=== PATIENT | female | born 1970 | race Caucasian/White ===

== ENCOUNTER 2017-11-12 11:34 | Emergency (ER) | payer OTHER, SELFPAY ==
[2017-11-12 11:45] VITALS: BP 109/92; PULSE 75; RESP 18; TEMP 36.6; O2SAT 100
--- NOTE | 2017-11-12 13:11 | ED_ITS ---
HPI - Eye Problem <JANETH Baker - Last Filed: 11/12/17 22:24> General Chief complaint: Eye Problems Stated complaint: WALK IN SENT OVER TO CHECK PRESSURE OF EYE Time Seen by Provider: 11/12/17 12:05 History of Present Illness HPI Narrative: 47-year-old female here for complaint of redness to her right eye for the last week. She states that she noticed that she had broken blood vessel to right eye she reports over the last several days that it has worsened where she has had a few more rupture blood vessels. She also reports now that she is having swelling into her upper and lower eyelids with some tenderness. She denies any purulent drainage. She does report that eye has been watering. She denies any trauma to the eye. She denies any visual changes. She has a history of hypertension she states that her blood pressure has been controlled well she denies any other concerns or complaints MD chief complaint: eye redness Related Data Home Medications Medication Instructions Recorded Confirmed acetaminophen 325 mg capsule 325 mg PO Q6H PRN 11/12/17 11/12/17 albuterol sulfate HFA 90 2 puff INHALATION Q6H PRN 11/12/17 11/12/17 mcg/actuation aerosol inhaler mometasone-formoterol HFA 200 2 puff INHALATION BID 11/12/17 11/12/17 mcg-5 mcg/actuation aerosol inhaler nifedipine ER 30 mg 30 mg PO BEDTIME 11/12/17 11/12/17 tablet,extended release olmesartan 40 mg tablet 40 mg PO BEDTIME 11/12/17 11/12/17 Allergies Allergy/AdvReac Type Severity Reaction Status Date / Time Sulfa (Sulfonamide Allergy hives Verified 11/12/17 11:00 Antibiotics) Review of Systems <JANETH Baker - Last Filed: 11/12/17 22:24> Constitutional Denies frequent falls Eyes Reports other Comments: Redness to right eye ENT Ears, Nose, Mouth, and Throat: Denies change in voice, Denies dizziness, Denies neck pain and Denies sore throat Cardiovascular Denies chest pain, Denies irregular heart rhythm, Denies lightheadedness, Denies palpitations, Denies dyspnea, Denies dyspnea on exertion and Denies orthopnea Respiratory Denies cough, Denies dyspnea, Denies dyspnea on exertion and Denies wheezing Gastrointestinal Gastrointestinal: Denies abdominal pain, Denies change in bowel habits, Denies diarrhea, Denies nausea and Denies vomiting Genitourinary Denies hematuria, Denies flank pain, Denies urinary incontinence and Denies urinary urgency Musculoskeletal Denies neck pain and Denies numbness Integumentary/Breasts Denies pruritus, Denies erythema, Denies rash and Denies wounds Neurologic Denies behavioral changes, Denies confusion, Denies dizziness, Denies frequent falls and Denies numbness Psychiatric Denies behavioral changes and Denies confusion Endocrine Denies palpitations Hematologic/Lymphatic Denies easy bruising Allergic/Immunologic Denies wheezing Exam <QUINTIN BakerP - Last Filed: 11/12/17 22:24> Initial Vital Signs Initial Vital Signs: Vital Signs Temperature 97.8 F 11/12/17 11:45 Pulse Rate 75 11/12/17 11:45 Respiratory Rate 18 11/12/17 11:45 Blood Pressure 109/92 H 11/12/17 11:45 Pulse Oximetry 100 11/12/17 11:45 Const General: cooperative and well developed Nutritional Appearance: well nourished Orientation: alert, awake, oriented x3 and not confused [facility] Head: normocephalic and atraumatic Mouth: oral mucosae normal and moist mucous membranes Eyes Eyelids: eyelid abnormality right upper eyelid swelling and tenderness and right lower eyelid swelling and tenderness Conjunctivae: conjunctival abnormality right conjunctival injection Sclera: scleral abnormality right hemorrhage Cornea: fluorescein used (No fluorescein uptake appreciated. ) Pupils: PERRL EOM: EOM intact bilaterally Other: Pressure to left eye 32 mmhg pressure to right eye 33mmhg Resp Effort & Inspection: normal respiratory effort, able to speak in complete sentences, no respiratory distress and no use of accessory muscles Auscultation: clear to auscultation bilaterally, no rales, no rhonchi and no wheezes Cardio Rate: regular rate Rhythm: regular rhythm Heart Sounds: no click, no gallops, no murmurs and no rubs Skin General: no rashes or lesions noted, No jaundice and No petechiae Neuro General: alert, oriented x3, gait normal and no focal motor deficits Speech: speech normal <Tk Berman DO - Last Filed: 11/18/17 18:20> Initial Vital Signs Initial Vital Signs: Vital Signs Temperature 97.8 F 11/12/17 11:45 Pulse Rate 75 11/12/17 11:45 Respiratory Rate 18 11/12/17 11:45 Blood Pressure 109/92 H 11/12/17 11:45 Pulse Oximetry 100 11/12/17 11:45 Course <JANETH Baker - Last Filed: 11/12/17 22:24> Vital Signs - 8 hr 11/12/17 11:45 Temperature 97.8 F Pulse Rate 75 Respiratory Rate 18 Blood Pressure 109/92 H Pulse Oximetry 100 <Tk Berman DO - Last Filed: 11/18/17 18:20> Vital Signs - 8 hr 11/12/17 11:45 Temperature 97.8 F Pulse Rate 75 Respiratory Rate 18 Blood Pressure 109/92 H Pulse Oximetry 100 MDM - Eye Problem <JANETH Baker - Last Filed: 11/12/17 22:24> MDM Narrative Medical decision making narrative: Right eye sclera are injected slight swelling to the upper eyelid and lower eyelid with tenderness. Negative for seen exam pressure to the left eye was 32 mm of mercury pressure to the right eye was 33 mm of mercury however patient did not tolerate testing well and was difficult for her to hold still so unsure if able to obtain accurate pressure reading. visual acuity was with normal. discussed case with Ophthalmology who agreed to see patient patient was sent to Ophthalmology for exam at this time. Discharge Plan Departure Patient Disposition: Released, Other Clinical Impression: Subconjunctival hemorrhage Discharge Date/Time: 11/12/17 13:48 Interventions: ED Discharge Assessment Last Done: 11/12/17 13:48 Instructions: DI for Subconjunctival Hemorrhage Activity Restrictions/Additional Instructions: Pressure readings in her eye today were elevated however unsure if pressures are accurate as you are comfortable with the exam. Discussed case with Ophthalmology who will see you now. Go to ophthalmology for further evaluation. Return emergency room for any worsening symptoms follow up with primary care provider. Prescriptions: No Action nifedipine 30 mg tablet extended release 30 mg PO BEDTIME RF: 0 albuterol sulfate 90 mcg/actuation HFA aerosol inhaler 2 puff INHALATION Q6H PRN (Reason: Shortness Of Breath) RF: 0 acetaminophen [Tylenol] 325 mg capsule 325 mg PO Q6H PRN (Reason: Pain, Mild) RF: 0 mometasone-formoterol [Dulera] 200-5 mcg/actuation HFA aerosol inhaler 2 puff INHALATION BID RF: 0 olmesartan [Benicar] 40 mg tablet 40 mg PO BEDTIME RF: 0 Referrals: Kassie Rodriguez PA-C [Primary Care Provider] - <Tk Berman DO - Last Filed: 11/18/17 18:20> Cosign ED Attending Tunde Attestation: I was available for consultation during this patient's emergency department encounter
== END 2017-11-12 13:48 | disposition home or self-care (01) ==
PROVIDERS: Emergency Provider Nurse Practitioner Family; PCP Physician Assistant Medical
DX: H11.30 Conjunctival hemorrhage, unspecified eye (principal)
CPT/HCPCS: 99282; 99283

== ENCOUNTER 2019-08-23 11:28 | Emergency (ER) | payer OTHER, SELFPAY ==
[2019-08-23 11:35] VITALS: BP 165/85; PULSE 79; RESP 14; TEMP 36.5; O2SAT 99
--- NOTE | 2019-08-23 11:47 | DI.CT.S_ITS ---
PROCEDURE: CT HEAD/BRAIN WO CON INDICATIONS: fell w/ head injury on friday, now blurry left eye and STARR TECHNIQUE: Noncontrast 4.5 mm thick angled axial sections acquired from the foramen magnum to the vertex, with coronal and sagittal reformats. For radiation dose reduction, the following was used: automated exposure control, adjustment of mA and/or kV according to patient size. COMPARISON: None. FINDINGS: Image quality: Excellent. CSF spaces: Basal cisterns are patent. No extra-axial fluid collections. The ventricles are symmetric in size and shape. Brain: No intracranial bleeds or masses. There is cerebral volume loss for age, with resultant ventricular and sulcal prominence. There are periventricular and deep white matter chronic small vessel ischemic changes. There is intracranial internal carotid artery atherosclerosis. Skull and face: Calvarium and visualized facial bones appear intact, without suspicious lesions. Sinuses: Visualized sinuses and mastoids are clear. IMPRESSION: No acute intracranial disease process. Dictated by: Tere Hurley MD, PhD on 08/23/2019 at 12:11 Approved by: Tere Hurley MD, PhD on 08/23/2019 at 12:13
[2019-08-23 13:25] VITALS: BP 152/77; PULSE 63; RESP 17; O2SAT 99
--- NOTE | 2019-08-23 13:35 | ED.HEATRA ---
HPI - Head Injury <JANETH Myers - Last Filed: 08/23/19 19:00> General Chief complaint: Head Injury Stated complaint: Fell at work 3 days ago Time Seen by Provider: 08/23/19 13:06 Source: patient Mode of arrival: Ambulatory Limitations: no limitations History of Present Illness HPI Narrative: 49yo female with history of hypertension asthma, presents emergency department complaining of an ongoing headache for the past few days. 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 She believes she hit her head, she was disoriented and may have had an episode of presyncope. The fall was unwitnessed, she was able to get up from the fall by herself. She was seen at [facility] that day, patient reports she had right ankle, wrist, and back pain. Patient reports that received x-rays of her right ankle, right wrist, and back. She denies any head CT. Patient reported yesterday she went back to work and continued to have dull aching diffuse headache with light sensitivity since the fall. 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 Patient also noted that under headache pain was at her worst, her left eye blurry for few brief moments and saw a vertical line in her vision. Patient states this quickly resolved after she closed her eyes. Patient states she has been taking Tylenol in the evening to help with her headache. She states the headache is mild. Her pain increases with working decreases with rest. Patient reports resolving right ankle and back pain. She reports her wrist was feeling better but after work today she reports increased pain with extensive movement, pain is relieved with rest. Patient denies any syncope, chest pain, double vision, vision loss, vomiting, wheezing, fevers, chills, abdominal pain, diarrhea, or any other concerns. Patient states she does not take ibuprofen as this causes her to wheeze due to asthma. She reports she has had tolerated on the past without wheezing. Related Data Home Medications Medication Instructions Recorded Confirmed acetaminophen 325 mg capsule 325 mg PO Q6H PRN 11/12/17 03/30/19 albuterol sulfate 90 mcg/actuation 2 puff INHALATION Q6H PRN 11/12/17 03/30/19 aerosol inhaler mometasone-formoterol HFA 200 2 puff INHALATION BID 11/12/17 03/30/19 mcg-5 mcg/actuation aerosol inhaler nifedipine 30 mg tablet,extended 30 mg PO BEDTIME 11/12/17 03/30/19 release olmesartan 40 mg tablet 40 mg PO BEDTIME 11/12/17 03/30/19 Previous Rx's Medication Instructions Recorded azithromycin 250 mg tablet See Rx Instructions PO .COMPLEX #6 03/30/19 tab benzonatate 100 mg capsule 100 mg PO BID PRN #14 cap 03/30/19 prednisone 20 mg tablet 20 mg PO DAILY #5 tab 03/30/19 ondansetron 4 mg PO Q8H PRN #10 tab 08/23/19 Allergies Allergy/AdvReac Type Severity Reaction Status Date / Time Sulfa (Sulfonamide Allergy hives Verified 08/23/19 11:39 Antibiotics) NSAIDS (Non-Steroidal AdvReac Wheezing Verified 08/23/19 11:39 Anti-Inflamma Review of Systems <JANETH Myers - Last Filed: 08/23/19 19:00> Review of Systems Narrative: REVIEW OF SYSTEMS: GENERAL: Denies fever or chills. HENT: Complains of headache after fall, see HPI. EYES: Complains of an intermittent line in vision of left eye, see HPI. No double vision or vision loss. CARDIOVASCULAR: No chest pain or syncope. RESPIRATORY: No shortness of breath or cough. GASTROINTESTINAL: No nausea, vomiting, diarrhea, or constipation. GENITOURINARY: No flank pain or dysuria. MUSCULOSKELETAL: Reports right-sided wrist pain, see HPI. INTEGUMENTARY: No rash, lesions, or pruritus. NEURO: No numbness, tingling. Patient History <JANETH Myers - Last Filed: 08/23/19 19:00> Medical History (Updated 08/23/19 @ 14:10 by JANETH Myers) Hypertension (Acute) Social History (System 11/14/17 @ 11:14 by Kenya Martinez) Smoking Status: Current every day smoker alcohol intake: current Smoking Status: Current every day smoker alcohol intake frequency: 0-2 drinks per day Substance Use Type: does not use Exam <JANETH Myers - Last Filed: 08/23/19 19:00> Initial Vital Signs Initial Vital Signs: Vital Signs Temperature 97.7 F 05/11/20 11:35 Pulse Rate 79 08/23/19 11:35 Respiratory Rate 14 08/23/19 11:35 Blood Pressure 165/85 H 08/23/19 11:35 Pulse Oximetry 99 08/23/19 11:35 PHYSICAL EXAMINATION: GENERAL: Well groomed, alert, and cooperative. Answers questions promptly and appropriately. Vital signs noted. HENT: Normocephalic, atraumatic upon examination. Oral mucosa moist. EYES: PERRLA, EOMI, Conjunctiva pink, sclera white, no periorbital swelling. CHEST: Normal to inspection and without deformities. NECK: Full range of motion, no tenderness to palpation. CARDIOVASCULAR: Regular rate. RESPIRATORY: Normal respiratory rate, trachea midline, airway patent. No stridor, nasal flaring or accessory muscle use. MUSCULOSKELETAL: Tenderness to palpation of right wrist, full range of motion. Equal cork mixer strength bilaterally. Normal gait and coordination. Equal tone and mass bilaterally. EXTREMITIES: CMS intact. Moves all extremities. SKIN: Warm, dry, soft, appropriate color for ethnicity. No lesions, rashes, or wounds. NEURO: Alert and Oriented X 3. Good coordination. No ataxia, or sensory deficits, or cognitive issues. PSYCH: Appropriate affect and mood. <Mina Toth MD - Last Filed: 08/23/19 19:41> Initial Vital Signs Initial Vital Signs: Vital Signs Temperature 97.7 F 08/23/19 11:35 Pulse Rate 79 08/23/19 11:35 Respiratory Rate 14 08/23/19 11:35 Blood Pressure 165/85 H 08/23/19 11:35 Pulse Oximetry 99 08/23/19 11:35 Course <JANETH Myers - Last Filed: 08/23/19 19:00> Course Course Narrative: Patient was given Toradol with improved symptoms. No wheezing is experience. Patient reported decreased nausea after administration of Zofran. Orders Ordered: ED Orders 08/23/19 11:47 CT head/brain wo con Stat Discontinued Medications Ketorolac Tromethamine (Toradol) 30 mg IM NOW ONE Stop: 08/23/19 13:35 Last Admin: 08/23/19 14:05 Dose: 30 mg Documented by: MADDIE Ondansetron HCl (Zofran Odt) 4 mg SL NOW ONE Stop: 08/23/19 13:35 Last Admin: 08/23/19 14:04 Dose: 4 mg Documented by: MADDIE Consultations Consultation #1: Patient staffed with Dr. Toth discussed symptoms, tests, test results, plan of care. Vital Signs Vital signs: Vital Signs - 8 hr 08/23/19 13:25 08/23/19 14:00 Pulse Rate 63 80 Respiratory Rate 17 14 Blood Pressure [Left Arm] 152/77 H 128/78 Pulse Oximetry 99 99 <Mina Toth MD - Last Filed: 08/23/19 19:41> Orders Ordered: ED Orders 08/23/19 11:47 CT head/brain wo con Stat Discontinued Medications Ketorolac Tromethamine (Toradol) 30 mg IM NOW ONE Stop: 08/23/19 13:35 Last Admin: 08/23/19 14:05 Dose: 30 mg Documented by: MADDIE Ondansetron HCl (Zofran Odt) 4 mg SL NOW ONE Stop: 08/23/19 13:35 Last Admin: 08/23/19 14:04 Dose: 4 mg Documented by: MADDIE Vital Signs Vital signs: Vital Signs - 8 hr 08/23/19 13:25 08/23/19 14:00 Pulse Rate 63 80 Respiratory Rate 17 14 Blood Pressure [Left Arm] 152/77 H 128/78 Pulse Oximetry 99 99 MDM - Head Injury <JANETH Myers - Last Filed: 08/23/19 19:00> Medical Records Attestation: I reviewed the patient's medical records. Lab Data Attestation: I reviewed the patient's lab results. Imaging Data CT scan - head: Radiologist's Impression: [place] [id number] CT Scan Report Signed Patient: Ilda Shankar JMR#: [id number] : [id number]:[id number] Age/Sex: 49 / FDate of Service: 08/23/19 Loc: ED Accession Number: [id number] Procedure: CT head/brain wo con Ordering Provider: Mina Toth MD PROCEDURE: CT HEAD/BRAIN WO CON INDICATIONS: fell w/ head injury on friday, now blurry left eye and STARR TECHNIQUE: Noncontrast 4.5 mm thick angled axial sections acquired from the foramen magnum to the vertex, with coronal and sagittal reformats. For radiation dose reduction, the following was used: automated exposure control, adjustment of mA and/or kV according to patient size. COMPARISON: None. FINDINGS: Image quality: Excellent. CSF spaces: Basal cisterns are patent. No extra-axial fluid collections. The ventricles are symmetric in size and shape. Brain: No intracranial bleeds or masses. There is cerebral volume loss for age, with resultant ventricular and sulcal prominence. There are periventricular and deep white matter chronic small vessel ischemic changes. There is intracranial internal carotid artery atherosclerosis. Skull and face: Calvarium and visualized facial bones appear intact, without suspicious lesions. Sinuses: Visualized sinuses and mastoids are clear. IMPRESSION: No acute intracranial disease process. Dictated by: Tere Hurley MD, PhD on 08/23/2019 at 12:11 Approved by: Tere Hurley MD, PhD on 08/23/2019 at 12:13 [facility] Narrative Medical decision making narrative: 49-year-old female presents emergency department post head injury from a fall off the back of a mail truck a few days ago. Patient states she was seen at [facility] and had a negative x-ray for her right ankle and right wrist as well as her back. Patient denies any itching to her head. Arrives complaining of ongoing headaches with the occurrence of intermittent line in vision of left eye. Head CT was ordered in triage. I suspect patient's symptoms are most likely caused by post concussion syndrome due to recent head injury, worsening headaches during work with exertion, negative head CT, discussion of associated nausea, and lack of other concerning symptoms such as vomiting. Additionally, patient was not taking anything for headaches during the day, only taking Tylenol night. Less likely intracranial etiology such as a bleed due to negative head CT, normal neurological examination post 2 days from incident, and lack of other concerning signs such as vomiting. Less likely emergent I etiology such as retinal detachment as patient describes a line in vision which is consistent with migraine-type headaches which are common after head injuries, no loss of vision, double vision, or floaters in vision. This instance happen intermittently, occurs at work during high levels of constipation. Patient was given a wrist brace for her wrist, did not repeat the x-ray as she states she had a negative x-ray 2 days ago. She was encouraged to not wear the wrist brace continually as this could result in muscle atrophy. She is encouraged to follow up with her primary care provider in 1-2 weeks for further evaluation and possibly repeat x-ray if indicated and she was still having symptoms. Patient was given extensive instruction to decreased brain activity for the next few days to help with postconcussion symptoms. She was encouraged to take Tylenol every 8 hours to help with pain. Return precautions given for new or worsening symptoms. Patient agrees to plan of care verbalized understanding. Discharge Plan Departure Patient Disposition: Home Clinical Impression: Postconcussion syndrome Discharge Date/Time: 08/23/19 14:37 Instructions: Concussion, DI for Closed Head Injury Activity Restrictions/Additional Instructions: Thank you for entrusting me with your care today. As discussed, your head CT is non-remarkable. Your symptoms are most likely caused by post-concussion syndrome. Headaches, blurry vision, nausea, and fatigue are common for the next few weeks after a concussion. Usually symptoms are aggravated by physical activity, screen time, and activities that require extensive focus. I suggest reducing screen time, resting, in taking Tylenol every 8 hours (max of 3000 mg a day) for the next 3 days even if your headaches are mild, this will help prevent your headaches from worsening. I have also prescribed you nausea medication, you may use this as needed. Please follow-up with your primary care provider in 1 week for further evaluation. Return emergency department for any new or worsening symptoms such as vomiting, syncope, vision loss, double vision, chest pain, shortness of breath, or any other concerns. Prescriptions: New ondansetron 4 mg tablet,disintegrating 4 mg PO Q8H PRN (Reason: nausea and vomiting) Qty: 10 RF: 0 No Action azithromycin 250 mg tablet See Rx Instructions PO .COMPLEX Qty: 6 RF: 0 prednisone 20 mg tablet 20 mg PO DAILY Qty: 5 RF: 0 benzonatate [Tessalon Perles] 100 mg capsule 100 mg PO BID PRN (Reason: cough) Qty: 14 RF: 0 nifedipine 30 mg tablet extended release 30 mg PO BEDTIME RF: 0 albuterol sulfate 90 mcg/actuation HFA aerosol inhaler 2 puff INHALATION Q6H PRN (Reason: Shortness Of Breath) RF: 0 acetaminophen [Tylenol] 325 mg capsule 325 mg PO Q6H PRN (Reason: Pain, Mild) RF: 0 mometasone-formoterol [Dulera] 200-5 mcg/actuation HFA aerosol inhaler 2 puff INHALATION BID RF: 0 olmesartan [Benicar] 40 mg tablet 40 mg PO BEDTIME RF: 0 Referrals: Kassie Rodriguez PA-C [Primary Care Provider] - Stand Alone Forms: Work Release Note
[2019-08-23 14:00] VITALS: BP 128/78; PULSE 80; RESP 14; O2SAT 99
[2019-08-23] MEDS: ONDANSETRON 4 MG ODT SL (14:04)
[2019-08-23] MEDS: KETOROLAC 60 MG/2 ML VIAL 30 MG IM (14:05)
== END 2019-08-23 14:37 | disposition home or self-care (01) ==
PROVIDERS: Emergency Provider Nurse Practitioner; PCP Physician Assistant Medical
DX: F07.81 Postconcussional syndrome (principal); W01.10XA Fall on same level from slipping, tripping and stumbling with subsequent striking against unspecified object, initial encounter; Y99.0 Civilian activity done for income or pay
CPT/HCPCS: 70450; 96372; 99284; J1885

== ENCOUNTER 2020-03-03 17:34 | Emergency (ER) | payer OTHER, SELFPAY ==
[2020-03-03 17:45] VITALS: BP 183/84; PULSE 73; RESP 16; TEMP 36.6; O2SAT 99; BMI 33.6
--- NOTE | 2020-03-03 18:51 | ED.BACK ---
HPI - Back Pain/Injury General Chief Complaint: Back Pain/Injury Stated Complaint: back pain, dizzy, speech trouble Time Seen by Provider: 03/03/20 18:06 Source: patient Mode of arrival: Ambulatory Limitations: no limitations History of Present Illness HPI Narrative: 49F smoker with history of HTN presents with ongoing lumbar pain since a fall suffered while working over the summer. She states that there are always been some lower lumbar pain since the fall but as we enter into the holiday season and she is picking up and moving heavy factors at work and seems to be worsening. She states her pain is worse with motion and improves with rest. She also experiences some worsening of symptoms she is on her feet too long. She does have some radiation down her left leg denies any numbness, tingling or weakness. She has had no footdrop and denies loss of control of bowel or bladder. She denies any fever or chills and does not take blood thinners. Her injury you with suffered in September or October when she stepped on a package at work and landed on her back and left side. She states that she was seen and evaluated immediately after the injury and thinks she had some pictures taken at another facility but isn't exactly sure. Complaint: back pain and back injury Onset (ago): month(s) Related Data Home Medications Medication Instructions Recorded Confirmed acetaminophen 325 mg capsule 325 mg PO Q6H PRN 11/12/17 03/30/19 albuterol sulfate 90 mcg/actuation 2 puff INHALATION Q6H PRN 11/12/17 03/30/19 aerosol inhaler mometasone-formoterol HFA 200 2 puff INHALATION BID 11/12/17 03/30/19 mcg-5 mcg/actuation aerosol inhaler nifedipine 30 mg tablet,extended 30 mg PO BEDTIME 11/12/17 03/30/19 release olmesartan 40 mg tablet 40 mg PO BEDTIME 11/12/17 03/30/19 Previous Rx's Medication Instructions Recorded azithromycin 250 mg tablet See Rx Instructions PO .COMPLEX #6 03/30/19 tab benzonatate 100 mg capsule 100 mg PO BID PRN #14 cap 03/30/19 prednisone 20 mg tablet 20 mg PO DAILY #5 tab 03/30/19 ondansetron 4 mg PO Q8H PRN #10 tab 08/23/19 cyclobenzaprine 10 mg PO TID PRN #14 tab 03/03/20 ketorolac 10 mg PO Q6H PRN #14 tab 03/03/20 prednisone See Rx Instructions .ROUTE 03/03/20 .COMPLEX #30 tab Allergies Allergy/AdvReac Type Severity Reaction Status Date / Time Sulfa (Sulfonamide Allergy hives Verified 03/03/20 17:45 Antibiotics) NSAIDS (Non-Steroidal AdvReac Wheezing Verified 03/03/20 17:45 Anti-Inflamma Review of Systems Constitutional Constitutional: Denies chills, Denies fatigue, Denies fever(s), Denies frequent falls, Denies lethargy and Denies weakness Eyes Eyes: Denies change in vision, Denies eye discharge, Denies irritation and Denies loss of vision ENT Ears, Nose, Mouth, and Throat: Denies change in voice, Denies dizziness, Denies neck pain, Denies sore throat and Denies throat swelling Cardiovascular Cardiovascular: Denies chest pain, Denies irregular heart rhythm, Denies lightheadedness, Denies palpitations, Denies dyspnea, Denies dyspnea on exertion and Denies orthopnea Respiratory Respiratory: Denies cough, Denies dyspnea, Denies dyspnea on exertion and Denies wheezing Gastrointestinal Gastrointestinal: Denies abdominal pain, Denies change in bowel habits, Denies diarrhea, Denies nausea and Denies vomiting Musculoskeletal Musculoskeletal: Reports back pain, Denies neck pain and Denies numbness Integumentary/Breasts Skin/Breast: Denies pruritus, Denies erythema, Denies rash and Denies wounds Neurologic Neurologic: Denies behavioral changes, Denies confusion, Denies dizziness, Denies frequent falls, Denies loss of vision, Denies numbness and Denies weakness Psychiatric Psychiatric: Denies anxiety, Denies behavioral changes, Denies confusion, Denies depression, Denies homicidal ideation and Denies suicidal ideation Endocrine Endocrine: Denies fatigue, Denies flushing and Denies palpitations Hematologic/Lymphatic Hematologic/Lymphatic: Denies easy bruising Allergic/Immunologic Allergic/Immunologic: Denies urticaria, Denies throat swelling and Denies wheezing Patient History Medical History Hypertension Social History Smoking Status: Current every day smoker alcohol intake: current Smoking Status: Current every day smoker alcohol intake frequency: holidays/special occasions only Substance Use Type: does not use Exam Narrative Exam Narrative: GENERAL: [49] year old patient appears stated age. Well-nourished, well-developed patient, in mild distress. HEAD: Atraumatic. Normocephalic. EYES: Pupils equal round and reactive. Extraocular motions intact. No scleral icterus. No injection or drainage. ENT: Nose without bleeding, purulent drainage. Throat without erythema, tonsillar hypertrophy or exudate. Airway patent. NECK: Trachea midline. Non tender CARDIOVASCULAR: Regular rate and rhythm without murmurs, gallops, or rubs. RESPIRATORY: Clear to auscultation. Breath sounds equal bilaterally. No wheezes, rales, or rhonchi. GASTROINTESTINAL: Abdomen soft, non-tender, nondistended. EXTREMITIES: No edema or joint tenderness. BACK: glassine machine tender but free of any obvious external abnormalities. Patient exam notes decreased range of motion and muscle spasm, but no CVA tenderness, or vertebral point tenderness. There are no symptoms of cauda equina such as saddle anesthesia, and decreased reflexes, decreased sensation or strength. NEURO: AOx3. SKIN: No rash or erythema of visible areas Initial Vital Signs Initial Vital Signs: Vital Signs Temperature 97.9 F 03/03/20 17:45 Pulse Rate 73 03/03/20 17:45 Respiratory Rate 16 03/03/20 17:45 Blood Pressure 183/84 H 03/03/20 17:45 Pulse Oximetry 99 03/03/20 17:45 Course Vital Signs Vital signs: Vital Signs - 8 hr 03/03/20 17:45 Temperature 97.9 F Pulse Rate 73 Respiratory Rate 16 Blood Pressure 183/84 H Pulse Oximetry 99 MDM - Back Pain/Injury Imaging Data L Spine: Radiologist's Impression: [address] [id number] ReportSigned Patient: Ilda Shankar JMR#: [id number]: [id number]:[id number]/Sex: 49 / FDate of Service: 03/03/20Loc: EDAccession Number: [id number] Procedure: XR lumbar spine 2-3V Ordering Provider: Virgil Luna D.O. PROCEDURE: XR LUMBAR SPINE 2-3V INDICATIONS: fall with lumbar pain TECHNIQUE: 3 views of the lumbar spine were acquired. COMPARISON: None. FINDINGS: Bones: There are multilevel degenerative changes with anterior osteophytes. No vertebral body height loss or intervertebral disc space narrowing. There is facet arthrosis from L3 through S1. The sacroiliac joints are normal. Soft tissues: Overlying bowel gas pattern is normal. No suspicious soft tissue calcifications. IMPRESSION: 1. No acute abnormality of the lumbar spine. 2. Multilevel degenerative changes and facet arthrosis. Dictated by: Esteban Duarte M.D. on 03/03/2020 at 20:15 Approved by: Esteban Duarte M.D. on 03/03/2020 at 20:17 MDM Narrative Medical decision making narrative: Multiple etiologies of back pain considered including; Epidural abscess, cauda equina, mass occupying lesion, and other considered Discharge Plan Departure Patient Disposition: Home Clinical Impression: Strain of lumbar region Sciatica Qualifiers: Laterality: left Qualified Code(s): M54.32 - Sciatica, left side Instructions: DI for Back Pain With Sciatica Activity Restrictions/Additional Instructions: *You have been diagnosed with [ back pain with sciatica ] *What to do: *Take medications as directed *Follow up with your primary care provider in 2-3 days, call for an appointment. Let them know you were seen in the Emergency Department and that we ask that you be seen in follow up *Return to ER if you should have any new, worsening or concerning symptoms Prescriptions: New cyclobenzaprine 10 mg tablet 10 mg PO TID PRN (Reason: muscle spasm) Qty: 14 RF: 0 prednisone 10 mg tablet See Rx Instructions .ROUTE .COMPLEX Qty: 30 RF: 0 ketorolac 10 mg tablet 10 mg PO Q6H PRN (Reason: pain) Qty: 14 RF: 0 No Action azithromycin 250 mg tablet See Rx Instructions PO .COMPLEX Qty: 6 RF: 0 prednisone 20 mg tablet 20 mg PO DAILY Qty: 5 RF: 0 benzonatate [Tessalon Perles] 100 mg capsule 100 mg PO BID PRN (Reason: cough) Qty: 14 RF: 0 nifedipine 30 mg tablet extended release 30 mg PO BEDTIME RF: 0 albuterol sulfate 90 mcg/actuation HFA aerosol inhaler 2 puff INHALATION Q6H PRN (Reason: Shortness Of Breath) RF: 0 acetaminophen [Tylenol] 325 mg capsule 325 mg PO Q6H PRN (Reason: Pain, Mild) RF: 0 mometasone-formoterol [Dulera] 200-5 mcg/actuation HFA aerosol inhaler 2 puff INHALATION BID RF: 0 olmesartan [Benicar] 40 mg tablet 40 mg PO BEDTIME RF: 0 ondansetron 4 mg tablet,disintegrating 4 mg PO Q8H PRN (Reason: nausea and vomiting) Qty: 10 RF: 0 Referrals: Kassie Rodriguez PA-C [Primary Care Provider] -
--- NOTE | 2020-03-03 18:58 | DI.RAD.S_ITS ---
PROCEDURE: XR LUMBAR SPINE 2-3V INDICATIONS: fall with lumbar pain TECHNIQUE: 3 views of the lumbar spine were acquired. COMPARISON: None. FINDINGS: Bones: There are multilevel degenerative changes with anterior osteophytes. No vertebral body height loss or intervertebral disc space narrowing. There is facet arthrosis from L3 through S1. The sacroiliac joints are normal. Soft tissues: Overlying bowel gas pattern is normal. No suspicious soft tissue calcifications. IMPRESSION: 1. No acute abnormality of the lumbar spine. 2. Multilevel degenerative changes and facet arthrosis. Dictated by: Esteban Duarte M.D. on 03/03/2020 at 20:15 Approved by: Esteban Duarte M.D. on 03/03/2020 at 20:17
[2020-03-03 20:38] VITALS: BP 149/74; PULSE 62; RESP 18; O2SAT 98
== END 2020-03-03 20:38 | disposition home or self-care (01) ==
PROVIDERS: Emergency Provider Emergency Medicine; PCP Physician Assistant Medical
DX: S39.012A Strain of muscle, fascia and tendon of lower back, initial encounter (principal); M54.32 Sciatica, left side; Y99.0 Civilian activity done for income or pay
CPT/HCPCS: 72100; 99281; 99283

== ENCOUNTER 2020-10-06 17:46 | Emergency (ER) | payer OTHER, SELFPAY ==
[2020-10-06 17:50] VITALS: BP 145/73; PULSE 60; RESP 12; TEMP 37.4; O2SAT 97; BMI 33.3
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
--- NOTE | 2020-10-06 19:17 | PC.NURSE ---
C-collar removed per Dr Luna
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
[2020-10-06 19:38] VITALS: BP 138/82; PULSE 76; O2SAT 97
== END 2020-10-06 19:38 | disposition home or self-care (01) ==
PROVIDERS: Emergency Provider Emergency Medicine; PCP Physician Assistant Medical
DX: M54.6 Pain in thoracic spine (principal); M62.838 Other muscle spasm; V89.2XXA Person injured in unspecified motor-vehicle accident, traffic, initial encounter
CPT/HCPCS: 70450; 72125; 72131; 99281; 99284

== ENCOUNTER → 2022-02-25 10:50 | Outpatient (CLI) | payer OTHER, SELFPAY ==
[2022-02-25 12:38] LABS: Influenza A - CEPHEID Flu A POSITIVE (NEGATIVE); Influenza B - CEPHEID Flu B NEGATIVE (NEGATIVE); Respiratory Syncytial Virus Negative (Negative)
[2022-02-25 12:42] LABS: COVID-19 CEPHEID 4-PLEX PCR Negative (Negative)
== END ==
PROVIDERS: PCP Physician Assistant Medical; Visit Provider Nurse Practitioner Family
DX: R05.9 Cough, unspecified (principal)
CPT/HCPCS: 0241U

== ENCOUNTER 2023-04-08 09:03 | Emergency (ER) | payer OTHER, SELFPAY ==
[2023-04-08 09:05] VITALS: BP 166/91; PULSE 86; RESP 14; TEMP 36.4; O2SAT 99; BMI 32.9
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
[2023-04-08 10:07] VITALS: BP 158/87; PULSE 80; RESP 16; O2SAT 97
== END 2023-04-08 10:08 | disposition home or self-care (01) ==
PROVIDERS: Emergency Provider Emergency Medicine; PCP Physician Assistant Medical
DX: S43.401A Unspecified sprain of right shoulder joint, initial encounter (principal); W18.30XA Fall on same level, unspecified, initial encounter
CPT/HCPCS: 73030; 99283

== ENCOUNTER → 2024-05-17 10:01 | Outpatient (CLI) | payer OTHER, SELFPAY ==
--- NOTE | 2024-05-17 10:04 | DI.MRI.S_ITS ---
PROCEDURE: MR SHOULDER RT W CON INDICATIONS: SHOULDER IMPINGEMENT TECHNIQUE: After the administration of 12 mL of dilute intra-articular Gadolinium contrast, oblique coronal T1 and T2 spin echo with fat saturation, oblique sagittal T1 spin echo with and without fat saturation, oblique sagittal T2 fast spin echo with fat saturation, axial T1 spin echo with fat saturation through the shoulder. COMPARISON: [facility], MR, MR SHOULDER RIGHT WITHOUT CONTRAST, 07/19/2023, 8:18. [facility] [place], CR, XR SHOULDER 2+ VIEWS RIGHT, 04/29/2024, 16:19. FINDINGS: Image quality: Excellent. Rotator cuff: In the supraspinatus, there is full-thickness, partial width tear at the critical zone of the mid fiber (08:12). Low-grade interstitial tear at the footprint of the junction supraspinatus and infraspinatus, extending to the critical zone. Moderate tendinosis of the infraspinatus with low-grade, partial width interstitial tear at the critical zone (09:10). The teres minor is unremarkable. Full-thickness tear of the most superior fiber of the subscapularis. No muscle edema or fatty atrophy. Bones and bursae: Status post subacromial decompression. Type 1 acromion. No os acromiale. Contrast extravasation into the subacromial/subdeltoid bursa. Status post prior rotator cuff tendon repair with multiple suture anchor at the greater tuberosity. No acute fracture. No focal chondral defect of the glenohumeral articulation. Capsule and soft tissues: Tear of the anterior superior labrum. No paralabral cyst. Partial-thickness tear of the proximal extra-articular biceps tendon. Patient is likely status post biceps tenodesis. The intra-articular biceps tendon is not visualized, postprocedural. Large amount intra-articular contrast distends the glenohumeral joint. No intra-articular body. IMPRESSION: 1. Status post subacromial decompression, prior rotator cuff tendon repair and biceps tenodesis. 2. Full-thickness, partial width tear of the supraspinatus. 3. Low-grade tear at the junction of supraspinatus and infraspinatus. 4. Low-grade interstitial tear of the infraspinatus. 5. Full-thickness, partial width tear of the most superior fiber of the subscapularis. 6. Partial-thickness tear of the proximal extra-articular biceps tendon. Dictated by: Jerilyn Wellington M.D. on 05/17/2024 at 14:42 Approved by: Jerilyn Wellington M.D. on 05/17/2024 at 14:55
--- NOTE | 2024-05-17 10:04 | DI.RAD.S_ITS ---
PROCEDURE: FL ARTHROGRAM SHOULDER RT INDICATIONS: SHOULDER IMPINGEMENT COMPARISON: None. TECHNIQUE: The indications, alternatives, benefits, risks, and complications of the procedure were explained to the patient. Written informed consent was obtained and placed in the chart. The shoulder was examined fluoroscopically and a site for needle placement chosen for entry into the glenohumeral joint from an anterior approach. The skin was prepped and draped in a sterile fashion, and 1% lidocaine infiltrated from skin down to joint capsule. A spinal needle was inserted into the glenohumeral joint, and a small amount of iodinated contrast media injected to confirm intra-articular placement of the needle tip. This was followed by approximately 12 mL dilute solution of a gadolinium containing MR contrast agent. The needle was removed and a dressing was applied. The patient was given postprocedural instructions and sent to the MR suite for MR imaging. FINDINGS: A single fluoroscopic spot image demonstrates intra-articular location of injected iodinated contrast. IMPRESSION: Successful fluoroscopically guided administration of dilute Gadolinium solution into the shoulder joint for MR arthrogram. Dictated by: Jeffrey Keys M.D. on 05/17/2024 at 11:02 Approved by: Jeffrey Keys M.D. on 05/17/2024 at 11:03
[2024-05-17] MEDS: LIDOCAINE 1% 20 ML INJ (10:39)
[2024-05-17] MEDS: SODIUM CHLORIDE 0.9 % 20 ML VIAL IV (10:40)
== END ==
LOC: RAD 10:03
PROVIDERS: PCP Physician Assistant Medical; Referring Provider Physician Assistant; Visit Provider Physician Assistant
DX: M75.111 Incomplete rotator cuff tear or rupture of right shoulder, not specified as traumatic (principal); M25.811 Other specified joint disorders, right shoulder; S46.211A Strain of muscle, fascia and tendon of other parts of biceps, right arm, initial encounter
CPT/HCPCS: 23350; 73040; 73222; A9579; Q9967